=== PATIENT | male | born 1970 | race Caucasian/White ===

== ENCOUNTER 2016-07-07 07:00 | Inpatient (IN) | payer OTHER ==
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
--- NOTE | ~2016-07-07 | PN ---
Unit #: [id number] #: [id number] Patient: SONA ARMSTRONG [id number] [facility] [address] [place] [address] [id number] I MR#: [id number] NAME: SONA ARMSTRONG ROOM: 82 Age: 45 Sex: M Admission Date: 07/07/2016 : 1970 Attending Physician: Rasheed Burns M.D. Admitting Physician: Rasheed Burns M.D. Primary Care Physician: Primary Care Physician Lorenza MCFADDEN PROGRESS NOTES DATE 07/11/2016 DISCUSSION The patient is complaining of back pain and increased anxiety. I will add p.r.n. Motrin and p.r.n. Vistaril. The patient is currently prescribed medications. She continues to complain of significant symptoms of alcohol withdrawal. Dictated by... Rasheed Burns M.D. CB/lee ann TD: 07/12/2016 22:58 JOB #: [id number] [facility] NOTES Page 1 of 1 X Rasheed Burns MD PROGRESS NOTE
--- NOTE | ~2016-07-07 | PN ---
Unit #: [id number] #: [id number] Patient: SONA ARMSTRONG [id number] [facility] [address] [place] [address] [id number] MR#: [id number] NAME: SONA ARMSTRONG ROOM: P182 Age: 45 Sex: M Admission Date: 07/07/2016 : 1970 Attending Physician: Rasheed Burns M.D. Admitting Physician: Rasheed Burns M.D. Primary Care Physician: Primary Care Physician Lorenza MCFADDEN PROGRESS NOTES DATE 07/09/2016 DISCUSSION The patient continues to complain of feeling "rough" related to alcohol withdrawal but has been compliant with some programming at least. He is denying any current suicidal ideation. Dictated by... Rasheed Burns M.D. CB/williams TD: 07/09/2016 22:29 JOB #: [id number] [facility] PROGRESS NOTES Page 1 of 1 X Rasheed Burns MD X PROGRESS NOTE
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
--- NOTE | ~2016-07-07 | PN ---
Unit #: [id number] #: [id number] Patient: SONA ARMSTRONG [id number] [facility] [address] [place] [address] [id number] MR#: [id number] NAME: SONA ARSMTRONG ROOM: P182 Age: 45 Sex: M Admission Date: 07/07/2016 : 1970 Attending Physician: Rasheed Burns M.D. Admitting Physician: Rasheed Burns M.D. Primary Care Physician: Primary Care Physician Lorenza MCFADDEN PROGRESS NOTES DATE 07/10/2016 DISCUSSION The patient is resting comfortably today. His detox continues uneventfully. We are looking at probable discharge after the weekend with followup to take place in the intensive outpatient program provided by this facility. Dictated by... Rasheed Burns M.D. CB/williams TD: 07/10/2016 17:28 JOB #: [id number] [facility] PROGRESS NOTES Page 1 of 1 X Rasheed Burns MD X PROGRESS NOTE
[2016-07-08 10:10] LABS: BASOPHIL% 0.4 % (0-2.5); EOSINOPHIL% 0.8 % (0.0-7.0); HEMOGLOBIN 13.4 gm/dL (13.0-16.0); LYMPHOCYTE# 1.3 X10e3 (1.0-3.5); LYMPHOCYTE% 42.2 % (17.0-45.0); MEAN CELL VOLUME 99.4 FL (83-96); MEAN CORPUSCULAR HEMOGLOBIN 33.3 PG (28-34); MEAN CORPUSCULAR HGB CONC 33.5 g/dL (30-36); MEAN PLATELET VOLUME 9.2 FL (6.5-11.5); MONOCYTE# 0.5 X10e3 (0-1.0); MONOCYTE% 16.4 % (3.0-12.0); NEUTROPHIL# 1.3 X10e3 (1.5-7.1); NEUTROPHIL% 40.2 % (40-75); RED BLOOD COUNT 4.02 X10e (3.90-5.60); RED CELL DISTRIBUTION WIDTH 19.4 % (11.0-15.5); WHITE BLOOD COUNT 3.2 X10e3 (4.0-10.5)
[2016-07-08 10:22] LABS: ALBUMIN SERUM 3.2 g/dL (3.5-5.0); BILIRUBIN,TOTAL 0.6 mg/dL (0.2-2.0); BUN/CREATININE RATIO 15.71; CALCIUM SERUM 9.4 mg/dL (8.4-10.2); CREATININE SERUM 0.7 mg/dL (0.6-1.4); GLOM FILT RATE Estimated 113.2 mL/min (>60); POTASSIUM 3.3 mmol/L (3.5-5.1); PROTEIN TOTAL SERUM 6.6 g/dL (6.0-8.3)
[2016-07-08 10:23] LABS: URINE APPEARANCE HAZY; URINE BLOOD NEG (NEG); URINE COLOR AMBER; URINE GLUCOSE NORM (NORM); URINE KETONE NEG (NEG); URINE LEUKOCYTE ESTERASE NEG (NEG); URINE NITRATE NEG (NEG); URINE PROTEIN NEG (NEG); URINE SPECIFIC GRAVITY 1.015 (1.003-1.035); URINE UROBILINOGEN 8 MG/DL (NORM)
[2016-07-08 10:27] LABS: URINE BILIRUBIN NEG (NEG)
[2016-07-08 10:48] LABS: DIFF IND YES; PLATELET COUNT 43 X10e3 (140-420)
[2016-07-08 10:59] LABS: ANISOCYTOSIS SL; PLATELET ESTIMATE DECREASED (NORMAL); RBC NORMAL YES
[2016-07-08 11:20] LABS: AMPHETAMINE NEG (NEG); BARBITURATES NEG (NEG); BENZODIAZEPINES POS (NEG); COCAINE NEG (NEG); MARIJUANA NEG (NEG); OPIATES NEG (NEG); TRICYCLIC ANTIDEPRESSANTS POS (NEG); U METHADONE NEG (NEG)
== END 2016-07-12 15:25 | disposition home or self-care (01) | DRG 897 ==
LOC: P1E 12:00
PROVIDERS: Specialist
PROC: HZ2ZZZZ Detoxification Services for Substance Abuse Treatment (ICD-10-PCS; principal; 2016-07-07)
DX: F10.10 Alcohol abuse, uncomplicated (principal); D69.59 Other secondary thrombocytopenia; F39 Unspecified mood [affective] disorder; F17.210 Nicotine dependence, cigarettes, uncomplicated
CPT/HCPCS: 80053; 80307; 81003; 85025; 86592